=== PATIENT | female | born 1985 | race African-American/Black ===

== ENCOUNTER 2017-04-12 15:22 | Emergency (ER) | payer MEDICAID ==
[~2017-04-12] VITALS: Ht 157.5 cm; Wt 76.2 kg
[~2017-04-12 15:22] MED LIST: ACYCLOVIR400 MG PO; ATIVAN1 MG ORAL; ORTHO TRI-CYCL1 EAC1 PO; PRILOSEC40 MG ORAL; PRINIVIL10 MG ORAL; TYLENOL325 MG ORAL
[2017-04-12 15:59] LABS: APPEARANCE,URINE CLEAR; KETONES,URINE 1+ (NEGATIVE); LEUKOCYTE ESTERASE ,URINE 1+ (NEGATIVE); NITRITE,URINE NEGATIVE (NEGATIVE); PH,URINE 6.5 (4.5-8.0); PROTEIN,URINE NEGATIVE (NEGATIVE); UROBILINOGEN,URINE 1 MG/DL (0.0-1.0)
[2017-04-12 16:06] LABS: BACTERIA,URINE FEW /HPF; SQUAMOUS EPITHELIAL CELL,UR FEW /LPF (NONE/OCC); WBC,URINE 0-2 /HPF (0 - 2)
[2017-04-12] MEDS ORDERED: NORCO 5-325 TA1 EAC1 ORAL (16:17)
[2017-04-12] MEDS ORDERED: IBUPROFEN600 MG ORAL (16:17)
[2017-04-12 16:28] VITALS: BP_SYST 134; BP_SYST 137; BP_DIAS 89; BP_DIAS 91
--- NOTE | 2017-04-12 21:38 | Emergency Room Report ---
History of Present Illness General Chief Complaint: Back Pain-No Injury Source: Patient Present Illness HPI The patient is a 31-year-old female presenting for back pain which began 5 days prior. She denies any injury or known provoking factors. Pain is described as an 8/10 dull ache and does not radiate. Pain worse with movement such as bending down. She does admit to slight dysuria but denies hematuria or increased urinary frequency. She denies abdominal pain. She denies any other symptoms including nausea, vomiting, fever, chills, numbness or tingling Allergies: Coded Allergies: SULFA (SULFONAMIDE ANTIBIOTICS) (Verified Allergy, Unknown, 06/26/10) Patient History Past Medical History: see triage record Pertinent Family History: none Last Menstrual Period: 01/24/17 Now: No : 2 Para: 2 Reviewed Nursing Documentation: PMH: Agreed, PSxH: Agreed Nursing Documentation-PMH Past Medical History: No History, Except For Hx Cardiac Problems: No Hx Hypertension: Yes Hx Pacemaker: No Hx Asthma: No Hx COPD: No Hx Diabetes: No Hx Cancer: No Hx Gastrointestinal Problems: No - GERD Hx Dialysis: No - KIDNEY STONES Hx Neurological Problems: No Hx Cerebrovascular Accident: No Hx Seizures: No Review of Systems All Other Systems: negative except mentioned in HPI Physical Exam Vital Signs Date Time Temp Pulse Resp B/P Pulse Ox O2 Delivery O2 Flow Rate FiO2 04/12/17 15:35 97.5 83 16 137/91 100 Room Air Sp02 EP Interpretation: reviewed, normal General Appearance: no apparent distress, alert, GCS 15, non-toxic Head: normocephalic, atraumatic Eyes: bilateral eye PERRL, bilateral eye normal inspection ENT: hearing grossly normal, normal pharynx, no angioedema, normal voice Neck: full range of motion, supple/symm/no masses Respiratory: chest non-tender, lungs clear, normal breath sounds, speaking full sentences Gastrointestinal: normal bowel sounds, non tender, soft, non-distended, no guarding, no rebound Genitourinary: normal inspection, no CVA tenderness Musculoskeletal: gait/station normal, normal range of motion, tender - TTP over bilat lumbar paraspinous muscles Neurologic: alert, oriented x3, responsive, motor strength/tone normal, sensory intact, speech normal Psychiatric: judgement/insight normal, memory normal, mood/affect normal, no suicidal/homicidal ideation Skin: normal color, no rash, warm/dry, well hydrated Lymphatic: no adenopathy Medical Decision Making PA Attestation Dr. aaron is my supervising physician. Patient management was discussed with my supervising physician Diagnostic Impression: Primary Impression: Back pain Qualified Codes: M54.5 - Low back pain ER Course The patient is a 31-year-old female presenting for back pain Ddx considered include but not limited to lumbar strain, degenerative disease, UTI, pyelonephritis PE: NAD Back: No obvious deformity. No midline tenderness. + Lumbar paraspinal muscle tenderness. Full active range of motion. No CVA tenderness. No lesions, abrasions or ecchymosis seen. Abd is soft and non tender Urinalysis unremarkable Patient will be treated for musculoskeletal pain and is given in ER precautions. Patient will followup with PMD Laboratory Tests Test 04/12/17 15:50 Urine Color Yellow Urine Appearance Clear Urine pH 6.5 (4.5-8.0) Urine Specific [place] 1.020 (1.005-1.035) Urine Protein Negative (NEGATIVE) Urine Glucose (UA) Negative (NEGATIVE) Urine Ketones 1+ (NEGATIVE) H Urine Occult Blood 1+ (NEGATIVE) H Urine Nitrite Negative (NEGATIVE) Urine Bilirubin Negative (NEGATIVE) Urine Urobilinogen 1 MG/DL (0.0-1.0) H Urine Leukocyte Esterase 1+ (NEGATIVE) H Urine RBC 2-4 /HPF (0 - 2) H Urine WBC 0-2 /HPF (0 - 2) Urine Squamous Epithelial Cells Few /LPF (NONE/OCC) Urine Bacteria Few /HPF (NONE) Urine HCG, Qualitative Negative Lab Results Impression UA shows no signs of infection Neg preg Last Vital Signs Date Time Temp Pulse Resp B/P Pulse Ox O2 Delivery O2 Flow Rate FiO2 04/12/17 16:28 97.5 16 137/91 100 Room Air 04/12/17 16:28 79 Status: improved Disposition: HOME, SELF-CARE Condition: Improved Scripts Hydrocodone Bit/Acetaminophen 5-325* (NORCO 5-325 TABLET*) 1 Each Tablet 1 TAB ORAL Q6HR Y for For Pain, #8 TAB Prov: TERZIAN,MAXIMILIANO P.A. 04/12/17 Ibuprofen* (MOTRIN*) 600 Mg Tablet 600 MG ORAL Q8H Y for For Pain, #30 TAB 0 Refills Prov: MAXIMILIANO BELL 04/12/17 Referrals: [facility]ERR[facility] (PCP) Patient Instructions: Back Pain, Adult Additional Instructions: I discussed my findings with the patient. All questions and concerns have been answered. Treatment and medication compliance have been addressed. I advised the patient that they need to follow up with PMD in 3-5 days. Return to ED if pain remains or worsens, numbness or tingling occurs, new rash is noticed, fever is noticed, or if needed for any reason. Patient verbalized understanding of discharge instructions. MAXIMILIANO BELL Apr 12, 2017 21:38
== END 2017-04-12 16:29 | disposition home or self-care (01) ==
LOC: EMR 16:06
DX: M54.5 Low back pain (principal); I10 Essential (primary) hypertension; Z87.442 Personal history of urinary calculi
CPT/HCPCS: 81003; 81025; 99284